=== PATIENT | female | born 1950 | race Caucasian/White ===

== ENCOUNTER → 2017-06-21 | Day surgery (SDC) | payer OTHER ==
[2017-06-15 10:51] LABS: BASOPHILS # (AUTO) 0.1 (0.0-0.1); BASOPHILS % 0.6 % (0.0-1.0); EOSINOPHILS # (AUTO) 0.2 (0.0-0.4); EOSINOPHILS % 2.8 % (0.0-6.0); HEMATOCRIT 38.9 % (34.2-44.1); HEMOGLOBIN 13.2 g/dL (12.0-16.0); LYMPHOCYTES # (AUTO) 1.6 (1.0-3.2); LYMPHOCYTES % 19.2 % (18.0-39.1); MEAN CORPUSCULAR HEMOGLOBIN 31.3 pg (28-32); MEAN CORPUSCULAR HGB CONC 33.9 g/dL (31-35); MEAN CORPUSCULAR VOLUME 92.2 fL (81-99); MONOCYTES # (AUTO) 0.7 (0.2-0.8); MONOCYTES % 8.3 % (4.4-11.3); NEUTROPHILS # (AUTO) 5.6 (2.1-6.9); PLATELET COUNT 252 x10e3/uL (140-360); RED BLOOD COUNT 4.22 x10e6/uL (3.6-5.1); RED CELL DISTRIBUTION WIDTH 13.7 % (11.7-14.4)
--- NOTE | 2017-06-15 11:33 | Diagnostic Imaging Report ---
PROCEDURE: Frontal and lateral views of the chest. COMPARISON: None. INDICATIONS: PRE OP FINDINGS: Lines/tubes: None. Lungs: The lungs are well inflated and clear. There is no evidence of pneumonia or pulmonary edema. Pleura: There is no pleural effusion or pneumothorax. Heart and mediastinum: The heart and the mediastinum are normal. Atherosclerotic calcifications Bones: No acute bony abnormality. Degenerative changes of the thoracic spine. IMPRESSION: No acute radiographic abnormality. Dictated by: Baldo López M.D. on 06/15/2017 at 11:42 Electronically approved by: Baldo López M.D. on 06/15/2017 at 11:42
[~2017-06-21] MED LIST: BENZONATATE100 MG PO; BUPIVACAINE HCL 0.5% INJ 30 ML VIAL INJ ONE; CEFAZOLIN SOD 2 GM/D5W 50ML 50 ML IV ONE; DEXAMETHASONE SOD PHOS INJ 4 MG/ML VIAL ONE; FENTANYL CITRATE/PF 100MCG/2 ML INJ ONE; FLONASE; LIDOCAINE HCL 2% LOCAL INJ 5 ML SDV VIAL INJ ONE; MIDAZOLAM HCL 2 MG/2 ML VIAL ONE; ONDANSETRON HCL INJ 2 MG/ML VIAL ONE; PANTOPRAZOLE SO40 MG PO; PRO AIR; PROPOFOL IV EMULSION 10 MG/ML 20 ML VIAL ONE; SEVOFLURANE INHAL SOLN 250 ML PEN BTL ONE
--- NOTE | 2017-06-22 16:14 | Operative Report ---
DATE OF PROCEDURE: June 21, 2017 PREOPERATIVE DIAGNOSES 1. Right knee medial meniscus tear. 2. Right knee degenerative joint disease of the knee. POSTOPERATIVE DIAGNOSES 1. Right knee medial meniscus tear. 2. Right knee lateral meniscus tear. 3. Right knee degenerative joint disease of the knee. OPERATIONS/PROCEDURES PERFORMED: Patient underwent right knee examination under anesthesia, right knee arthroscopy, right knee partial medial meniscectomy, right knee partial lateral meniscectomy, right knee chondroplasty of the patella, the trochlea, the medial femoral condyle, medial tibial plateau, lateral femoral condyle, and lateral tibial plateau. MANGLE TENDER CLOTH: None. ANESTHESIA: General endotracheal intubation anesthesia. IV FLUIDS: Per the anesthesia record. BRIEF DESCRIPTION OF THE PATIENT'S OPERATIVE PROCEDURE: Ms. Reyes was taken to the operating room and placed in supine position on the operating table. Following induction of general anesthesia as well as endotracheal intubation, the patient's right lower extremity was examined under anesthesia. She was found to have a mild effusion within the knee joint, but an otherwise ligamentously stable knee. The patient's lower extremity was prepped and draped in standard surgical fashion. A 2-portal technique was used to provide this patient arthroscopic evaluation of the knee joint. Examination of the suprapatellar pouch and medial and lateral gutters found no evidence of loose bodies. Examination of the medial compartment demonstrated a torn medial meniscus. There was also chondromalacia of articulating surfaces. A combination of biting forceps and a motorized shaver was used to resect the torn portion of the meniscus. Chondroplasties of the medial femoral condyle and medial tibial plateau were also performed at this time. Scope was advanced to the intracondylar notch. The anterior cruciate ligament was identified and found to be intact. Scope was advanced to the lateral compartment and there was maceration of the lateral meniscus. A combination of biting forceps and a motorized shaver was used to resect the torn portion of the meniscus. There was also chondromalacia of articulating surfaces and chondroplasties of the lateral femoral condyle and lateral tibial plateau were performed at this time. Scope was then placed in the suprapatellar pouch and chondroplasties of the patella and trochlea were performed. The knee was deflated of its sterile normal saline. Each of the portal sites were closed using 4-0 nylon suture. The portal sites as well as the knee itself were then injected with 0.5% Marcaine with epinephrine. Sterile dressings were applied. The patient was awakened and taken to postanesthesia care unit in stable condition. Job#: [id number] RADHA
== END | disposition home or self-care (01) ==
LOC: OR 08:17
PROVIDERS: ATTEND Specialist
DX: S83.241A Other tear of medial meniscus, current injury, right knee, initial encounter (principal); S83.281A Other tear of lateral meniscus, current injury, right knee, initial encounter; M17.11 Unilateral primary osteoarthritis, right knee; M22.41 Chondromalacia patellae, right knee; J45.909 Unspecified asthma, uncomplicated; X58.XXXA Exposure to other specified factors, initial encounter; Z01.810 Encounter for preprocedural cardiovascular examination; Z01.812 Encounter for preprocedural laboratory examination; Z01.818 Encounter for other preprocedural examination
CPT/HCPCS: 29880; 36415; 71020; 85025; 93005; J1100; J2001; J2250; J2405

== ENCOUNTER → 2018-01-31 | Day surgery (SDC) | payer MEDICARE ==
[2018-01-29 13:58] LABS: BASOPHILS # (AUTO) 0.1 (0.0-0.1); EOSINOPHILS # (AUTO) 0.5 (0.0-0.4); EOSINOPHILS % 6.1 % (0.0-6.0); HEMATOCRIT 37.9 % (34.2-44.1); LYMPHOCYTES # (AUTO) 1.7 (1.0-3.2); LYMPHOCYTES % 20.7 % (18.0-39.1); MEAN CORPUSCULAR HGB CONC 34.3 g/dL (31-35); MEAN CORPUSCULAR VOLUME 90.5 fL (81-99); MONOCYTES # (AUTO) 0.6 (0.2-0.8); MONOCYTES % 6.7 % (4.4-11.3); NEUTROPHILS # (AUTO) 5.4 (2.1-6.9); NEUTROPHILS % 65.3 % (38.7-80.0); PLATELET COUNT 289 x10e3/uL (140-360); RED BLOOD COUNT 4.19 x10e6/uL (3.6-5.1); RED CELL DISTRIBUTION WIDTH 13.1 % (11.7-14.4)
--- NOTE | 2018-01-29 15:53 | Diagnostic Imaging Report ---
PROCEDURE: Frontal and lateral views of the chest. COMPARISON: 06/15/17 INDICATIONS: PREOPERATIVE CHEST XRAY FOR KNEE SURGERY FINDINGS: Lines/tubes: None. Lungs: The lungs are well inflated and clear. There is no evidence of pneumonia or pulmonary edema. Pleura: There is no pleural effusion or pneumothorax. Heart and mediastinum: The heart and the mediastinum are normal. Bones: No acute bony abnormality. IMPRESSION: 1. No acute cardiopulmonary disease. Dictated by: Sherman Echevarria M.D. on 01/29/2018 at 15:59 Electronically approved by: Sherman Echevarria M.D. on 01/29/2018 at 15:59
[~2018-01-31] MED LIST changes: +BUPIVACAINE 0.5%/EPI 30 ML SDV INJ ONE; -BUPIVACAINE HCL 0.5% INJ 30 ML VIAL INJ ONE; +DESFLURANE 240 ML BTL INH ONE; +KETAMINE HCL INJ 50 MG/ML 10 ML VIAL ONE; +KETOROLAC TROMETHAMINE 30 MG/ML VIAL ONE; -SEVOFLURANE INHAL SOLN 250 ML PEN BTL ONE; +TYLENOL PO
--- NOTE | 2018-02-03 14:06 | Operative Report ---
DATE OF PROCEDURE: 01/31/18 PREOPERATIVE DIAGNOSES 1. Left knee medial meniscus tear. 2. Left knee lateral meniscus tear. 3. Left knee degenerative joint disease of the knee. POSTOPERATIVE DIAGNOSES 1. Left knee lateral meniscus tear. 2. Left knee degenerative joint disease of the knee. OPERATION/PROCEDURE PERFORMED: 1. Left knee examination under anesthesia. 2. Left knee arthroscopy. 3. Left knee partial lateral meniscectomy. 4. Left knee chondroplasty of the patella, the trochlea, the medial femoral condyle, medial tibial plateau, lateral femoral condyle and lateral tibial plateau. TRUCK SALES MANAGER: None. ANESTHESIA: General endotracheal intubation anesthesia. IV FLUIDS: Per the anesthesia record. BRIEF DESCRIPTION OF THE PATIENT'S OPERATIVE PROCEDURE: Ms. Reyes was taken to the operating room and placed in the supine position on the operating table. Following induction of general anesthesia as well as endotracheal intubation, the patient's left extremity was examined under anesthesia. She was found to have a mild effusion within the knee joint, but otherwise ligamentously stable knee. The patient's lower extremity was prepped and draped in standard surgical fashion. A 2 portal technique was used to provide this patient arthroscopic evaluation of the knee joint. Examination of the suprapatellar pouch, medial and lateral gutters found no evidence of loose bodies. There was, however, evidence of chondromalacia of the patellar and trochlear surfaces. The scope was then advanced into the medial compartment and examination of the medial compartment demonstrated chondromalacia of articulating surfaces. The meniscus was evaluated thoroughly. There was mild wear to the posterior horn of the medial meniscus, but no evidence of a tear in the posterior horn of the medial meniscus. The scope was then advanced into the intercondylar notch and anterior cruciate ligament was then found to be intact. Scope was advanced in lateral compartment and examination of the lateral compartment demonstrated a torn lateral meniscus. There was also chondromalacia of the articulating surfaces. A chondroplasties of the medial femoral condyle and medial tibial plateau were performed at this time. The scope was advanced into the intercondylar notch and anterior cruciate ligament was identified and found to be intact. Scope then was advanced into the lateral compartment and there was a torn lateral meniscus identified. There was also chondromalacia of articulating surfaces. A combination of biting forceps and motorized shaver were used to resect the torn portion of meniscus. Chondroplasties of the lateral femoral condyle and lateral tibial plateau performed at this time. Scope was then advanced into the suprapatellar pouch, and chondroplasties of the patella and trochlea were performed. The knee was deflated of its sterile normal saline. Each of the portal sites were closed using 4-0 nylon suture. The portal sites as well as the knee itself were injected with half percent Marcaine with epinephrine. Sterile dressings were applied. The patient was awakened and taken to the post anesthesia care unit in stable condition. Job#: [id number] GH AMIE
--- OUTSIDE RECORDS SUMMARY | 2018-03-22 01:57 | XMS REPORT | Encounter Summary ---
Author Organization Unknown Address [address] [place] [id number] Phone [phone] Reason for Visit Medical Complaint Instructions 1. Contact dermatitis " prednisone 10 mg tablet Discussion Note Follow up with PCP or contract post office clerk if symptoms continue or worsen Patient educational handouts: No information available. Plan of Care Reminders Provider Appointments None recorded. Lab None recorded. Referral None recorded. Procedures None recorded. Surgeries None recorded. Imaging None recorded. Medications Name Start Date Advair Diskus amoxicillin 500 mg capsule ampicillin 500 mg capsule benzonatate 100 mg capsule Take 2 capsules every 8 hours by oral route as needed for 10 days. chlorhexidine gluconate 0.12 % mouthwash fluticasone 50 mcg/actuation nasal spray,suspension Fluzone Quad (PF) 60 mcg(15 mcgx4)/0.5 mL intramuscular syringe hydrocodone 5 mg-acetaminophen 325 mg tablet ibuprofen 600 mg tablet Imitrex naproxen 375 mg tablet,delayed release pantoprazole 40 mg tablet,delayed release Pneumovax 23 25 mcg/0.5 mL injection syringe prednisone 10 mg tablet take 4 tablets po qd x 2 days then 3 tablets po qd x 2 days then 2 tablets po qd x 2 days then 1 tablet po qdx 2 days ProAir HFA 90 mcg/actuation aerosol inhaler tramadol 50 mg tablet Zostavax (PF) 19,400 unit/0.65 mL subcutaneous suspension Medications Administered None recorded. Vitals Height Weight BMI Blood Pressure 5 ft 6.5 in 210 lbs 33.4 kg/m2 128/74 mm[Hg] Lab Results None recorded. Allergies Code Code System Name Reaction Severity Status Onset NKDA Problems Name Status Onset Date Source Allergic Rhinitis Active Encounter Urinary Tract Infectious Disease Active Encounter Procedures None recorded. Vaccine List None recorded. Social History None recorded. Past Encounters 02/10/2017 Contact Dermatitis Amber Sal PA-C: [address] [place] [address], Ph. History of Present Illness Qrnz-Fiiqplt-Hexhw-Skin Lesion-Bite 1 Reported By: Patient HPI: Location: chest. Quality: not painful, itchy, tender, red, multiple, generalized. Severity: worsening, moderate. Duration: has noted for 1-2months. Onset/Timing: gradual onset, recurring. Context: no new detergents or skin products, no one else with similar rash, no sting or bite, scratching. Aggravating factors: nothing makes it worse; has tried all OTC creams. Alleviating factors: nothing gives relief. Associated Symptoms: no fever/chills , no muscle aches, no headache, no cold symptoms, no nausea, no vomiting, no diarrhea, no urinary symptoms Review of Systems:ROS as noted in the HPI Review of Systems Basic Reported By: Patient Physical Exam Adult Basic Reported By: Patient Constitutional: General Appearance: healthy-appearing, well-nourished, well- developed. Level of Distress: NAD. Ambulation: ambulating normally Psychiatric: Mental Status: active and alert. Orientation: to time, to place, to person Skin: Inspection and palpation: no lesions, no ulcer, no abnormal nevi, no induration, no nodules, good turgor, no jaundice, rash. Nails: normal
--- OUTSIDE RECORDS SUMMARY | 2018-03-22 01:57 | XMS REPORT ---
Author Author [facility] Address Unknown Phone Unavailable Care Team Providers Care Supervisor Boarding Name Role Phone TIFFANIE ZHANG Unavailable Unavailable Problems This patient has no known problems. Allergies, Adverse Reactions, Alerts This patient has no known allergies or adverse reactions. Medications This patient has no known medications. Results Test Description Test Time Test Comments Text Results Atomic Results Result Comments CHEST 2 VIEWS 2018-01-29 15:59:00 [facility] [address] [address] Patient Name: FERNANDEZ SAMUEL MR #: [id number] : 1950 Age/Sex: 67/F Req #: [id number] Adm Physician: Ordered by: ALESHIA PARKER MD Report #: [id number] Location: OR Room/Bed: Procedure: [id number] DX/CHEST 2 VIEWS Exam Date: 01/29/18 Exam Time: 1350 REPORT STATUS: Signed PROCEDURE: Frontal and lateral views of the chest. COMPARISON: 06/15/17 INDICATIONS: PREOPERATIVE CHEST XRAY FOR KNEE SURGERY FINDINGS: Lines/tubes: None. Lungs: The lungs are well inflated and clear. There is no evidence of pneumonia or pulmonary edema. Pleura: There is no pleural effusion or pneumothorax. Heart and mediastinum: The heart and the mediastinum are normal. Bones: No acute bony abnormality. IMPRESSION: 1. No acute cardiopulmonary disease. Dictated by: Sherman Banuelos M.D. on 01/29/2018 at 15:59 Electronically approved by: Sherman Banuelos M.D. on 01/29/2018 at 15:59 Dictated By: SHERMAN BANUELOS MD [id number] Transcribed By: VANESSA on 01/29/18 155 COPY TO: ALESHIA PARKER MD CHEST 2 VIEWS [place] [address] Patient Name: FERNANDEZ SAMUEL MR #: [id number] : 1950 Age/Sex: 66/F Req # : [id number] Adm Physician: Ordered by: TIFFANIE ZHANG MD Report #: [id number] Location: OR Room/Bed: Procedure: [id number] DX/CHEST 2 VIEWS Exam Date: 06/15/17 Exam Time : 1052 REPORT STATUS: Signed PROCEDURE: Frontal and lateral views of the chest. COMPARISON: None. INDICATIONS: PRE OP FINDINGS: Lines/tubes: None. Lungs: The lungs are well inflated and clear. There is no evidence of pneumonia or pulmonary edema. Pleura: There is no pleural effusion or pneumothorax. Heart and mediastinum: The heart and the mediastinum are normal. Atherosclerotic calcifications Bones: No acute bony abnormality. Degenerative changes of the thoracic spine. IMPRESSION: No acute radiographic abnormality. Dictated by: Cordell Norris M.D. on 06/15/2017 at 11:42 Electronically approved by: Cordell Norris M.D. on 06/15/2017 at 11:42 Dictated By: CORDELL NORRIS MD [id number] COPY TO: TIFFANIE ZHANG MD
--- OUTSIDE RECORDS SUMMARY | 2018-03-22 01:57 | XMS REPORT | Clinical Summary ---
Author Author [facility] Address Unknown Phone Unavailable Care Team Providers Care Carrier Driver Name Role Phone PCP Unavailable Allergies No Known Allergies Current Medications Prescription Sig. Disp. Refills Start End Date Status Date aspirin 81 MG chewable Take 81 mg by mouth Active tablet daily. fluticasone (FLONASE) 50 1 spray by Nasal route Active mcg/actuation nasal spray daily. cholecalciferol, vitamin Take by mouth. Active D3, 2,000 unit Cap pantoprazole (PROTONIX) Take 40 mg by mouth Active 40 MG tablet daily. benzonatate (TESSALON) Take 100 mg by mouth 3 Active 100 MG capsule (three) times daily as needed for Cough. albuterol HFA (VENTOLIN Inhale 1 puff by mouth Active HFA) 90 mcg/actuation via inhaler every 6 (six) inhaler hours as needed for Wheezing. Active Problems Not on file Social History Tobacco Use Types Packs/Day Years Used Date Never Smoker Tobacco Cessation: Counseling Given: No Alcohol Use Drinks/Week oz/Week Comments Yes socially Sex Assigned at Date Recorded Not on file Last Filed Vital Signs Not on file Plan of Treatment Not on file Results Not on fileafter 01/30/2017
== END | disposition home or self-care (01) ==
LOC: OR 07:28
PROVIDERS: ATTEND Specialist
DX: S83.272A Complex tear of lateral meniscus, current injury, left knee, initial encounter (principal); S83.222A Peripheral tear of medial meniscus, current injury, left knee, initial encounter; M17.12 Unilateral primary osteoarthritis, left knee; M22.42 Chondromalacia patellae, left knee; J45.909 Unspecified asthma, uncomplicated; K21.9 Gastro-esophageal reflux disease without esophagitis; R00.1 Bradycardia, unspecified; X58.XXXA Exposure to other specified factors, initial encounter; Z01.810 Encounter for preprocedural cardiovascular examination; Z01.812 Encounter for preprocedural laboratory examination; Z01.818 Encounter for other preprocedural examination; Z68.34 Body mass index [BMI] 34.0-34.9, adult; Z82.61 Family history of arthritis
CPT/HCPCS: 29881; 36415; 71046; 85025; 93005; J1100; J1885; J2001; J2250; J2405